=== PATIENT | female | born 1965 ===

== ENCOUNTER 2019-05-21 06:00 | Outpatient (RCR) | payer BC, SELFPAY | END 2019-06-12 23:59 | disposition home or self-care (01) | LOC: GOT 06:00 | PROVIDERS: Family Provider Nurse Practitioner; Referring Provider Physician Assistant; Visit Provider Physician Assistant | DX: S62.101D Fracture of unspecified carpal bone, right wrist, subsequent encounter for fracture with routine healing (principal); X58.XXXD Exposure to other specified factors, subsequent encounter | CPT/HCPCS: 97018; 97110; 97124; 97140; 97166 ==

== ENCOUNTER 2023-12-13 06:00 | Outpatient (RCR) | payer OTHER, SELFPAY | END 2024-01-12 23:59 | disposition home or self-care (01) | LOC: GPT 06:00 | PROVIDERS: Visit Provider Orthopaedic Surgery | DX: S93.411D Sprain of calcaneofibular ligament of right ankle, subsequent encounter (principal); S93.421D Sprain of deltoid ligament of right ankle, subsequent encounter; X58.XXXD Exposure to other specified factors, subsequent encounter | CPT/HCPCS: 97110; 97112; 97140; 97161 ==

== ENCOUNTER 2024-01-13 06:00 | Outpatient (RCR) | payer OTHER, SELFPAY | END 2024-01-20 23:59 | disposition home or self-care (01) | LOC: GPT 06:00 | PROVIDERS: Visit Provider Orthopaedic Surgery | DX: S93.411D Sprain of calcaneofibular ligament of right ankle, subsequent encounter (principal); S93.421D Sprain of deltoid ligament of right ankle, subsequent encounter; X58.XXXD Exposure to other specified factors, subsequent encounter | CPT/HCPCS: 97110; 97112 ==